=== PATIENT | female | born 1970 | race Caucasian/White ===

== ENCOUNTER 2016-06-26 13:14 | Observation (INO) | payer BC ==
[2016-06-26] MEDS ORDERED: Aspirin Low Dose CHEW TAB* 81 MG PO ONE (13:23)
[2016-06-26 13:46] LABS: Hematocrit 44 % (35-47); Hemoglobin 14.9 g/dl (12.0-16.0); Mean Corpuscular HGB Conc 34 g/dl (31-36); Mean Corpuscular Hemoglobin 32 pg (27-31); Mean Corpuscular Volume 93 fL (80-97); Mean Platelet Volume 8 um3 (7.4-10.4); Red Blood Count 4.66 10^6/ul (4.0-5.4); Red Cell Distribution Width 12 % (10.5-15); White Blood Count 7.3 10^3/ul (3.5-10.8)
--- NOTE | 2016-06-26 14:03 | RAD ---
INDICATION: Chest pain. Short of breath. COMPARISON: March 05, 2014 TECHNIQUE: An AP portable view obtained at 1345 hours is submitted. FINDINGS: Bones/Soft Tissues: There are no acute bony findings. Cardiomediastinal: The cardiomediastinal silhouette is normal. Lungs: There are no infiltrates. Pleura: There are no pleural effusions. Other: None IMPRESSION: NO ACTIVE DISEASE.
[2016-06-26 14:05] LABS: Albumin 4.1 g/dL (3.2-5.2); BUN/Creatinine Ratio 14.9 (8-20); Calcium 8.7 mg/dL (8.6-10.3); EGFR African American 121.9 (>60); EGFR Non-African American 94.8 (>60); Globulin 2.8 g/dL (2-4); Magnesium 1.8 mg/dL (1.9-2.7); Potassium 3.3 mmol/L (3.5-5.0); Total Bilirubin 0.5 mg/dL (0.2-1.0); Total Protein 6.9 g/dL (6.4-8.9)
[2016-06-26 14:37] LABS: TSH (Thyroid Stimulating Horm) 1.34 mcIU/mL (0.34-5.60)
--- NOTE | 2016-06-26 16:28 | ED ---
Maria Victoria Guerra Matthew, scribed for Travis Cummings MD on 06/26/16 at 1345 . HPI Chest Pain - HPI Summary HPI Summary: A 45 y/o female presents to the ED with chest pressure since 12:00 today. The pain has since resolved. At that time, the pain was described as heaviness and lasted for a few minutes. Immediately after, she had chest palpitations for 10 minutes, which mildly persists now. Two days ago, she had chest pain described as tightness with numbness in the left arm. Today associated symptoms include mild SOB, nausea, diaphoresis, and palpitations. The patient denies chest pain - currently, calf swelling, recent travel, recent illness, cough, fever, chills , headache, urinary symptom, and abdominal pain. The symptoms are unaffected by deep breaths. The patient ate this morning. She drinks ~two cups of coffee per day. Hx of ID and had a catheterization approximately 2 years ago. Her last stress test was a year ago. The patient is not currently on medications. She states that she has a Hx of sodium deficiency. She is suppose to take an aspirin daily, but has not been regularly. Former Smoker. - History of Current Complaint Hx Obtained From: Patient Onset/Duration: Started Hours Ago, Atraumatic, Resolved Time of Onset: 12:00 Timing: Lasting Minutes Initial Severity: Moderate Current Severity: None Chest Pain Radiates: No Character: Pressure/Squeezing, Tightness Aggravating Factor(s): Nothing Alleviating Factor(s): Spontaneous Resolution Associated Signs and Symptoms: Positive: Chest Pain - since resolved, Shortness of Breath, Diaphoresis, Nausea, Other: - papitations. Negative: Headaches, Calf Pain/Swelling - Allergy/Home Medications Allergies/Adverse Reactions: Allergies Allergy/AdvReac Type Severity Reaction Status Date / Time Azithromycin [From Zithromax] AdvReac Intermediate NAUSEA Verified 04/08/14 13: 33 VOMITING PMH/Surg Hx/FS Hx/Imm Hx Endocrine/Hematology History: Reports: Other Endocrine/Hematological Disorders - NACL INSUFFICIENCY Denies: Hx Diabetes, Hx Thyroid Disease Cardiovascular History: Reports: Other Cardiovascular Problems/Disorders - MITRAL VALVE PROLAPSE, AORTIC INSUFFICIENCY Denies: Hx Congestive Heart Failure, Hx Hypertension Respiratory History: Denies: Hx Asthma, Hx Chronic Obstructive Pulmonary Disease (COPD) GI History: Denies: Hx Ulcer History: Denies: Hx Renal Disease Sensory History: Reports: Hx Contacts or Glasses Opthamlomology History: Reports: Hx Contacts or Glasses Neurological History: Reports: Hx Headaches, Hx Migraine - Cancer History Cancer Type, Location and Year: Na deficiency Hx Chemotherapy: No Hx Radiation Therapy: No - Surgical History Surgery Procedure, Year, and Place: Tubal 1998, Endometrosis exp surg 1993 Hx Anesthesia Reactions: No Infectious Disease History: Denies: Hx Hepatitis, Hx Human Immunodeficiency Virus (HIV), Traveled Outside the [place] in Last 30 Days - N - Family History Known Family History: Positive: Cardiac Disease Family History: FHx of CHF - Social History Alcohol Use: None Substance Use Type: Reports: None Smoking Status (MU): Never Smoked Tobacco Review of Systems Positive: Skin Diaphoresis. Negative: Fever, Chills Eyes: Negative ENT: Negative Positive: Palpitations - mild, Chest Pain - resolved since onset Positive: Shortness Of Breath - improved since onset Positive: Nausea. Negative: Abdominal Pain Genitourinary: Negative Positive: no symptoms reported Musculoskeletal: Negative Negative: Edema - calf Skin: Negative Neurological: Negative Negative: Headache Positive: Anxious All Other Systems Reviewed And Are Negative: Yes Physical Exam - Summary Physical Exam Summary: The patient is well-nourished in no acute distress and in no acute pain. The skin is warm and dry and skin color reflects adequate perfusion. HEENT: The head is normocephalic and atraumatic. The pupils are equal and reactive. The conjunctivae are clear and without drainage. Nares are patent and without drainage. Mouth reveals moist mucous membranes and the throat is without erythema and exudate. The external ears are intact. The ear canals are patent and without drainage. The tympanic membranes are intact. Neck is supple with full range of motion and non-tender. There are no carotid bruits. There is no neck vein distension. Respiratory: Chest is non-tender. No reproducible chest pain. Lungs are clear to auscultation and breath sounds are symmetrical and equal. Cardiovascular: Hear is regular rate and rhythm. There is no murmur or rub auscultated. There is no peripheral edema and pulses are symmetrical and equal. Abdomen: The abdomen is soft and non-tender. There are normal bowel sounds heard in all four quadrants and there is no organomegaly palpated. Musculoskeletal: There is no back pain noted. Extremities are non-tender with full range of motion. There is good capillary refill. There is no peripheral edema or calf tenderness elicited. No pitting edema noted. Neurological: Patient is alert and oriented to person, place and time. The patient has symmetrical motor strength in all four extremities. Cranial nerves are grossly intact. Deep tendon reflexes are symmetrical and equal in all four extremities. Psychiatric: The patient appears anxious. Triage Information Reviewed: Yes Vital Signs On Initial Exam: Temp Pulse Resp BP Pulse Ox 98.7 F 88 16 122/80 100 06/26/16 13:28 06/26/16 13:37 06/26/16 13:28 06/26/16 13:35 06/26/16 13:37 Vital Signs Reviewed: Yes Diagnostics - Vital Signs Vital Signs Temp Pulse Resp BP Pulse Ox 06/26/16 13:37 88 100 06/26/16 13:35 122/80 06/26/16 13:28 98.7 F 88 16 122/80 100 - Laboratory Lab Results: Lab Results 06/26/16 06/26/16 06/26/16 Range/Units 13:35 13:35 13:35 WBC 7.3 (3.5-10.8) 10^3/ul RBC 4.66 (4.0-5.4) 10^6/ul Hgb 14.9 (12.0-16.0) g/dl Hct 44 (35-47) % MCV 93 (80-97) fL MCH 32 H (27-31) pg MCHC 34 (31-36) g/dl RDW 12 (10.5-15) % Plt Count 233 (150-450) 10^3/ul MPV 8 (7.4-10.4) um3 Neut % (Auto) 70.5 (38-83) % Lymph % (Auto) 20.2 L (25-47) % Swift % (Auto) 7.3 (1-9) % Eos % (Auto) 0.9 (0-6) % Baso % (Auto) 1.1 (0-2) % Absolute Neuts (auto) 5.2 (1.5-7.7) 10^3/ul Absolute Lymphs (auto) 1.5 (1.0-4.8) 10^3/ul Absolute Monos (auto) 0.5 (0-0.8) 10^3/ul Absolute Eos (auto) 0.1 (0-0.6) 10^3/ul Absolute Basos (auto) 0.1 (0-0.2) 10^3/ul Absolute Nucleated RBC 0 10^3/ul Nucleated RBC % 0 D-Dimer, Quantitative < 200 (Less Than 230) ng/mL Sodium 136 (133-145) mmol/L Potassium 3.3 L (3.5-5.0) mmol/L Chloride 103 (101-111) mmol/L Carbon Dioxide 24 (22-32) mmol/L Anion Gap 9 (2-11) mmol/L BUN 10 (6-24) mg/dL Creatinine 0.67 (0.51-0.95) mg/dL Est GFR ( Amer) 121.9 (>60) Est GFR (Non-Af Amer) 94.8 (>60) BUN/Creatinine Ratio 14.9 (8-20) Glucose 100 (70-100) mg/dL Lactic Acid (0.5-2.0) mmol/L Calcium 8.7 (8.6-10.3) mg/dL Magnesium 1.8 L (1.9-2.7) mg/dL Total Bilirubin 0.50 (0.2-1.0) mg/dL AST 15 (13-39) U/L ALT 13 (7-52) U/L Alkaline Phosphatase 41 (34-104) U/L Troponin I 0.00 (<0.04) ng/mL B-Natriuretic Peptide ( - 100) pg/mL Total Protein 6.9 (6.4-8.9) g/dL Albumin 4.1 (3.2-5.2) g/dL Globulin 2.8 (2-4) g/dL Albumin/Globulin Ratio 1.5 (1-3) TSH 1.34 (0.34-5.60) mcIU/mL 06/26/16 06/26/16 Range/Units 13:35 13:35 WBC (3.5-10.8) 10^3/ul RBC (4.0-5.4) 10^6/ul Hgb (12.0-16.0) g/dl Hct (35-47) % MCV (80-97) fL MCH (27-31) pg MCHC (31-36) g/dl RDW (10.5-15) % Plt Count (150-450) 10^3/ul MPV (7.4-10.4) um3 Neut % (Auto) (38-83) % Lymph % (Auto) (25-47) % Swift % (Auto) (1-9) % Eos % (Auto) (0-6) % Baso % (Auto) (0-2) % Absolute Neuts (auto) (1.5-7.7) 10^3/ul Absolute Lymphs (auto) (1.0-4.8) 10^3/ul Absolute Monos (auto) (0-0.8) 10^3/ul Absolute Eos (auto) (0-0.6) 10^3/ul Absolute Basos (auto) (0-0.2) 10^3/ul Absolute Nucleated RBC 10^3/ul Nucleated RBC % D-Dimer, Quantitative (Less Than 230) ng/mL Sodium (133-145) mmol/L Potassium (3.5-5.0) mmol/L Chloride (101-111) mmol/L Carbon Dioxide (22-32) mmol/L Anion Gap (2-11) mmol/L BUN (6-24) mg/dL Creatinine (0.51-0.95) mg/dL Est GFR ( Amer) (>60) Est GFR (Non-Af Amer) (>60) BUN/Creatinine Ratio (8-20) Glucose (70-100) mg/dL Lactic Acid 2.1 H* (0.5-2.0) mmol/L Calcium (8.6-10.3) mg/dL Magnesium (1.9-2.7) mg/dL Total Bilirubin (0.2-1.0) mg/dL AST (13-39) U/L ALT (7-52) U/L Alkaline Phosphatase (34-104) U/L Troponin I (<0.04) ng/mL B-Natriuretic Peptide 15 ( - 100) pg/mL Total Protein (6.4-8.9) g/dL Albumin (3.2-5.2) g/dL Globulin (2-4) g/dL Albumin/Globulin Ratio (1-3) TSH (0.34-5.60) mcIU/mL Result Diagrams: 06/26/16 13:35 01/23/17 13:35 Lab Statement: Any lab studies that have been ordered have been reviewed, and results considered in the medical decision making process. - Radiology CXR Xray Interpretation: No Acute Changes - NO ACTIVE DISEASE Radiology Interpretation Completed By: Radiologist - EKG 13:11 Cardiac Rate: NL - 93 bpm EKG Rhythm: Sinus Rhythm EKG Interpretation: RBBB; QRSD 125; negative sgarbossa criteria; Chest Pain Course/Dx - Course Assessment/Plan: A 45 y/o female presents to the ED with chest pressure since 12 :00 today. The pain has since resolved. At that time, the pain was described as heaviness and lasted for a few minutes. Immediately after, she had chest palpitations for 10 minutes, which mildly persists now. She has a Hx of ID. Labs were reviewed. CXR shows no active disease. EKG shows NSR at 93 bpm with RBBB. Discussed the case with Dr. Stark who will admit the patient into his services. The patient will be followed for second troponin draw. - Chest Pain Differential Diagnosis/HQI/PQRI: Acute ID, ACS, Angina, GI Disease, Pulmonary Edema, Pulmonary Embolism - Diagnoses Provider Diagnoses: Chest pain - Provider Notifications Discussed Care Of Patient With: Dr. Stark (Hospitalist) at 14:45 -- Notified of patient's history and will admit the patient into his services. Discharge - Discharge Plan Condition: Stable Disposition: ADMITTED TO [facility] Prescriptions: Colchicine* [Colcrys*] 0.6 mg PO DAILY #14 tab oxyCODONE/Acetamin 5/325 MG* [Percocet 5/325 TAB*] 1 tab PO Q6H PRN #20 tab MDD 4 PRN Reason: pain Referrals: Ladi JEAN-C,Elizabeth Mix. Jj [Primary Care Provider] - The documentation as recorded by the Maria Victoria alvarez Matthew accurately reflects the service I personally performed and the decisions made by , Travis Cummings MD.
--- NOTE | 2016-06-26 16:38 | ADMNOTE ---
Subjective Date of Service: 06/26/16 Interval History: ADMISSION HISTORY AND PHYSICAL EXAM: Allergies Allergy/AdvReac Type Severity Reaction Status Date / Time Azithromycin [From Zithromax] AdvReac Intermediate NAUSEA Verified 04/08/14 13: 33 VOMITING Home Medications Medication Instructions Recorded Confirmed Type Sodium Chloride TAB* 1 grams PO TID 03/05/14 06/26/16 History HPI: Two days ago while carrying laundry at home she had the sudden onset of mid- chest pain adn marked diaphoresis, lasting about 5 minutes. Today while sitting at her desk at work about 11:45 developed similar mid-chest pain, marked palpitations, dyspnea, diphoresis. This lasted about until the ambulance arrived. The EMT gave her 4 x ASA 81 mg. No pain since then. She does not exercise. Family History: Findings - unremakable Social History: Findings - Quit smoking 1991. No alcohol abuse. Lives with her who is her SDM. Past Medical History: Findings - BTL. Orthostatic hypotension dx'd at [facility]. Aortic insufficency, migraines, endometriosis. Review of Systems - Measurements Intake and Output: Intake and Output Last 24 Hours 06/24/16 06/25/16 06/26/16 06/27/16 06:59 06:59 06:59 06:59 Weight 170 lb - Review of Systems Constitutional Symptoms: Negative: Weight Gain, Weight Loss, Weakness, Fatigue, Fever, Night Sweats, Unexplained Falls, Other Dermatology: Negative: Normal, Rash, Skin Lesions, Cancer, Skin Lumps, Other HEENT: Negative: Normal, Change in Hearing, Vertigo, Dental Problems, Tinnitus, Sinus Problem, Other Eyes: Negative: Normal, Change in Vision, Double Vision, Eye Pain, Glaucoma, Cataract, Contacts or Glasses, Other Thyroid: Negative: Normal, Goiter, Thyroid Nodule, Cold Intolerance, Heat Intolerance , Sweatiness, Tremor, Frequent Defecation, Constipation, Palpitations, Primary Hypothyroidism, Primary Hyperthyroidism, Weight Loss, Weight Gain, Change in Skin/Hair, Change in Menstration, Radiation Exposure, Other Pulmonary: Negative: Normal, Cough, Sputum, Hemoptysis, Wheezing, Respiratory Distress, Shortness of Breath, COPD, Asthma, Exercise Intolerance, Home Oxygen, Other Cardiology: Positive: Chest Pain, Shortness of Breath, Palpitations, Other - Abnormal tilt-table test in [place] Gastroenterology: Positive: Normal Genital - Urinary: Positive: Normal Genitourinay - Female: Positive: Other - Pt states she is elmo-menopausal Musculoskeletal: Negative: Joint Pain, Joint Stiffness, Arthritis, Osteoporosis, Low Back Pain , Sciatica, Joint Deformities, Kyphoscoliosis, Other Endocrinology: Positive: Normal Hematologic/Lymphatic: Negative: Anemia, Easy Brusing, Hx Leukemia, Hx Lymphoma, Use of Anticoagulant, Use of Antiplatelet Drugs, Other Neurology: Positive: Normal Psychiatry: Positive: Normal Allergic/Immunologic: Negative: Hx Anaphylaxis, Hx Angioedema, Hx Environmental, Hx Seasonal, Athsma, Hx HIV, Immunocompromise, Swollen Glands LymphNodes, Other Objective Active Medications: Sodium Chloride (Sodium Chloride Tab*) 1 gm PO AC DEEDEE Vital Signs 06/26/16 06/26/16 06/26/16 13:28 13:35 13:37 Temperature 98.7 F Pulse Rate 88 88 Respiratory 16 Rate Blood Pressure 122/80 122/80 (mmHg) O2 Sat by Pulse 100 100 Oximetry Oxygen Devices in Use Now: None Appearance: Alert, partly up on ED stretcher. In good spirits. Looks comfortable. Eyes: No Scleral Icterus Ears/Nose/Mouth/Throat: Clear Oropharnyx, Mucous Membranes Moist Neck: NL Appearance and Movements; NL JVP, No Thyroid Enlargement, Masses Respiratory: Symmetrical Chest Expansion and Respiratory Effort, Clear to Auscultation, Clear to Percussion Cardiovascular: NL Sounds; No Murmurs; No JVD, RRR, No Edema, - Abdominal: NL Sounds; No Tenderness; No Distention, No Hepatosplenomegaly, - Extremities: No Edema, No Clubbing, Cyanosis, - Skin: No Rash or Ulcers, No Nodules or Sclerosis, - Neurological: Alert and Oriented x 3, NL Sensation Result Diagrams: 06/26/16 13:35 06/26/16 13:35 Additional Lab and Data: Lab Results 06/26/16 06/26/16 06/26/16 Range/Units 13:35 13:35 13:35 WBC 7.3 (3.5-10.8) 10^3/ul RBC 4.66 (4.0-5.4) 10^6/ul Hgb 14.9 (12.0-16.0) g/dl Hct 44 (35-47) % MCV 93 (80-97) fL MCH 32 H (27-31) pg MCHC 34 (31-36) g/dl RDW 12 (10.5-15) % Plt Count 233 (150-450) 10^3/ul MPV 8 (7.4-10.4) um3 Neut % (Auto) 70.5 (38-83) % Lymph % (Auto) 20.2 L (25-47) % Milam % (Auto) 7.3 (1-9) % Eos % (Auto) 0.9 (0-6) % Baso % (Auto) 1.1 (0-2) % Absolute Neuts (auto) 5.2 (1.5-7.7) 10^3/ul Absolute Lymphs (auto) 1.5 (1.0-4.8) 10^3/ul Absolute Monos (auto) 0.5 (0-0.8) 10^3/ul Absolute Eos (auto) 0.1 (0-0.6) 10^3/ul Absolute Basos (auto) 0.1 (0-0.2) 10^3/ul Absolute Nucleated RBC 0 10^3/ul Nucleated RBC % 0 D-Dimer, Quantitative < 200 (Less Than 230) ng/mL Sodium 136 (133-145) mmol/L Potassium 3.3 L (3.5-5.0) mmol/L Chloride 103 (101-111) mmol/L Carbon Dioxide 24 (22-32) mmol/L Anion Gap 9 (2-11) mmol/L BUN 10 (6-24) mg/dL Creatinine 0.67 (0.51-0.95) mg/dL Est GFR ( Amer) 121.9 (>60) Est GFR (Non-Af Amer) 94.8 (>60) BUN/Creatinine Ratio 14.9 (8-20) Glucose 100 (70-100) mg/dL Lactic Acid (0.5-2.0) mmol/L Calcium 8.7 (8.6-10.3) mg/dL Magnesium 1.8 L (1.9-2.7) mg/dL Total Bilirubin 0.50 (0.2-1.0) mg/dL AST 15 (13-39) U/L ALT 13 (7-52) U/L Alkaline Phosphatase 41 (34-104) U/L Troponin I 0.00 (<0.04) ng/mL B-Natriuretic Peptide ( - 100) pg/mL Total Protein 6.9 (6.4-8.9) g/dL Albumin 4.1 (3.2-5.2) g/dL Globulin 2.8 (2-4) g/dL Albumin/Globulin Ratio 1.5 (1-3) TSH 1.34 (0.34-5.60) mcIU/mL 06/26/16 06/26/16 Range/Units 13:35 13:35 WBC (3.5-10.8) 10^3/ul RBC (4.0-5.4) 10^6/ul Hgb (12.0-16.0) g/dl Hct (35-47) % MCV (80-97) fL MCH (27-31) pg MCHC (31-36) g/dl RDW (10.5-15) % Plt Count (150-450) 10^3/ul MPV (7.4-10.4) um3 Neut % (Auto) (38-83) % Lymph % (Auto) (25-47) % Milam % (Auto) (1-9) % Eos % (Auto) (0-6) % Baso % (Auto) (0-2) % Absolute Neuts (auto) (1.5-7.7) 10^3/ul Absolute Lymphs (auto) (1.0-4.8) 10^3/ul Absolute Monos (auto) (0-0.8) 10^3/ul Absolute Eos (auto) (0-0.6) 10^3/ul Absolute Basos (auto) (0-0.2) 10^3/ul Absolute Nucleated RBC 10^3/ul Nucleated RBC % D-Dimer, Quantitative (Less Than 230) ng/mL Sodium (133-145) mmol/L Potassium (3.5-5.0) mmol/L Chloride (101-111) mmol/L Carbon Dioxide (22-32) mmol/L Anion Gap (2-11) mmol/L BUN (6-24) mg/dL Creatinine (0.51-0.95) mg/dL Est GFR ( Amer) (>60) Est GFR (Non-Af Amer) (>60) BUN/Creatinine Ratio (8-20) Glucose (70-100) mg/dL Lactic Acid 2.1 H* (0.5-2.0) mmol/L Calcium (8.6-10.3) mg/dL Magnesium (1.9-2.7) mg/dL Total Bilirubin (0.2-1.0) mg/dL AST (13-39) U/L ALT (7-52) U/L Alkaline Phosphatase (34-104) U/L Troponin I (<0.04) ng/mL B-Natriuretic Peptide 15 ( - 100) pg/mL Total Protein (6.4-8.9) g/dL Albumin (3.2-5.2) g/dL Globulin (2-4) g/dL Albumin/Globulin Ratio (1-3) TSH (0.34-5.60) mcIU/mL Assess/Plan/Problems-Billing Assessment: - Patient Problems (1) Chest pain Current Visit: Yes Status: Acute Code(s): R07.9 - CHEST PAIN, UNSPECIFIED SNOMED Code(s): 38225943 Comment: With marked palpitations. Note negative cardiac cath 06/2012. Followed by Dr. Haq for aortic insufficiency. Troponin x 3, tele. Stress echo to r/o ischemia and/or arrythmia. Patient encouraged to walk while on tele. (2) Aortic insufficiency Current Visit: Yes Status: Acute Comment: Mild to mod 07/02/12. Pt recalls having her last echo about [address] Haq. (3) Orthostatic hypotension Current Visit: Yes Status: Acute Code(s): I95.1 - ORTHOSTATIC HYPOTENSION SNOMED Code(s): 04497190 Comment: Diagnosed by tilt-table in [place]. Pt states that as long as she takes 1 gm sodium tid she doesn't pass out.
[2016-06-26] MEDS: Sodium Chloride TAB* 1 GM PO SCH (16:47)
[2016-06-27] MEDS: Sodium Chloride TAB* 1 GM PO SCH (11:10)
[2016-06-27] MEDS ORDERED: Regadenoson* 0.4 MG/5 ML SYRINGE ONE (12:33)
[2016-06-27 12:55] VITALS: BP 119/70
--- NOTE | 2016-06-27 21:42 | DS ---
DISCHARGE SUMMARY: DATE OF ADMISSION: DATE OF DISCHARGE: 06/27/16 HOSPITAL COURSE: This 45-year-old woman presented with chest pain and palpitations. The history is detailed in my admission note. The patient was admitted to a telemetry unit. She had 3 troponin levels, all of which were normal. She had no further palpitations or chest pain. In the hospital, the telemetry monitoring did not reveal any significant arrhythmias. The patient had a stress echo. This was interpreted as normal. FINAL DIAGNOSES: 1. Atypical chest pain and palpitations. 2. Aortic insufficiency. 3. Orthostatic hypotension. DISCHARGE MEDICATIONS: 1. Sodium chloride 1 g t.i.d. 2. Colchicine 0.6 mg p.r.n. 3. Oxycodone/acetaminophen 5/325 one every 6 hours p.r.n. CC: Dr. Haq* [id number]/CPS #: [id number] MTDD
== END 2016-06-27 14:30 | disposition home or self-care (01) ==
LOC: ED 13:14 → MEDTELE 16:22
PROVIDERS: ADMIT Internal Medicine; ATTEND Internal Medicine
DX: R07.9 Chest pain, unspecified (principal); R00.2 Palpitations; R07.89 Other chest pain; I35.1 Nonrheumatic aortic (valve) insufficiency; I95.1 Orthostatic hypotension
CPT/HCPCS: 36415; 71010; 80053; 83605; 83735; 83880; 84443; 84484; 85025; 85379; 93005; 93350; 99284; A9270-GY; G0378; J2785